=== PATIENT | male | born 1970 | race Caucasian/White ===

== ENCOUNTER → 2017-03-28 | Day surgery (SDC) | payer BC ==
[~2017-03-28] MED LIST: ALLOPURINOL300 MG PO; AMARYL4 MG PO; ASPIRIN325 MG PO; CIPRO500 MG PO; FISH OIL 1,0001 EACH PO; GLUCOPHAGE1000 MG PO; IBUPROFEN400 MG PO; JANUVIA100 MG PO; LIPITOR80 MG PO; PERCOCET 10/3251 TAB PO; PHENERGAN25 M1 PO; PLAVIX75 MG PO; PYRIDIUM200 MG PO; TENORMIN100 MG PO; ULTRAM50 MG PO; VALIUM10 MG PO; ZESTRIL20 MG PO; ZOFRAN4 MG PO
== END | disposition home or self-care (01) ==
LOC: SDC 12:24
DX: N20.1 Calculus of ureter (principal); I10 Essential (primary) hypertension; E11.9 Type 2 diabetes mellitus without complications; I25.2 Old myocardial infarction; I25.10 Atherosclerotic heart disease of native coronary artery without angina pectoris; J44.9 Chronic obstructive pulmonary disease, unspecified; E66.9 Obesity, unspecified; M17.12 Unilateral primary osteoarthritis, left knee; Z87.442 Personal history of urinary calculi; Z87.891 Personal history of nicotine dependence; Z79.02 Long term (current) use of antithrombotics/antiplatelets; Z79.82 Long term (current) use of aspirin; Z79.84 Long term (current) use of oral hypoglycemic drugs; Z98.890 Other specified postprocedural states
CPT/HCPCS: C1758; C1894; C2617; J1885; J2704; Q9967